=== PATIENT | male | born 1995 ===

== ENCOUNTER 2021-04-10 13:40 | Inpatient (IN) | payer OTHER, SELFPAY ==
[2021-04-10 13:50] VITALS: BMI 25.0
[2021-04-10 14:03] VITALS: BP 120/83; PULSE 116; RESP 18; TEMP 36.7; O2SAT 98
--- NOTE | 2021-04-10 15:05 | PC.NURSE ---
ADMISSION PATIENT ARRIVED DIRECT ADMIT FROM [facility]. REPORTS DRINKING ALCOHOL DAILY FOR ABOUT 2 YEARS NOW. HAS BEEN HAVING ISSUES WITH FAMILY RECENTLY. ONLY FAMILY NEAR IS SISTER THAT DOES NOT WANT TO TALK TO HIM. MOM HAS MOVED TO [facility]. WHILE DRUNK BEGAN TO HAVE SI. STATES THAT HE OCCASIONALLY HAS SI BUT ONLY WHEN HE IS DRINKING. ONCE SOBER THE THOUGHTS ARE GONE. AT THIS TIME, HE WOULD LIKE TO GET HELP FOR HIS ALCOHOL USE. DENIES ANY CURRENT OUTPATIENT CARE. HAS NOT BEEN ON MEDS FOR 2 YEARS. AT THAT TIME WAS ON ZOLOFT BUT ONLY FOR ABOUT MONTHS. PATIENT IS CALM, COOPERATIVE, A&OX4. DENIES CURRENT SI, DENIES HI AND AVH. BAL 312. UDS + THC.
[2021-04-10] MEDS: nicotine 2 mg Gum BUCCAL ×3 (15:18→20:20)
[2021-04-10] MEDS: trazodone 50 mg Tablet PO (20:20)
[2021-04-10 20:58] VITALS: BP 120/79; PULSE 108; RESP 18; TEMP 36.6; O2SAT 99
[2021-04-11 06:00] VITALS: BP 114/75; PULSE 112; RESP 16; TEMP 36.6; O2SAT 98
[2021-04-11] MEDS: multivitamin therapeutic Tablet 1 TAB PO (08:55)
[2021-04-11] MEDS: thiamine 100 mg Tablet PO (08:55)
[2021-04-11] MEDS: folic acid 1 mg Tablet PO (08:55)
--- NOTE | 2021-04-11 10:02 | P.NPUHP_ITS ---
Providers/Chief Complaint Admitting Physician: Willam Bedolla MD Chief Complaint: ETHO, SI HPI NPU History of Present Illness Gaurav Conde is a 25 year old male who presented to the outside hospital after he told some people about him having suicidal thoughts with a plan, and that led to him being at the outside hospital. He was transferred to [facility] and admitted to the neuropsychiatric unit for definitive treatment of those issues. He has never had psychiatric outpatient treatment. He reports he had outpatient treatment in 2019 [address] in [place]. He reports he went to a few therapy sessions but did not really stick with it. He reports he has been on Zoloft during that time and then he has had attention deficit hyperactivity disorder medication as a child in the past. He does not remember if he had outpatient services then, or if he was just going to some doctor for his attention deficit hyperactivity disorder medication. He reports that was from school age through high school, just beyond high school that he was taking attention deficit hyperactivity disorder medication. He reports he smokes cigarettes maybe like three to four a week. He drinks alcohol most days, sometimes pushing up towards a fifth on heavy days. He smokes marijuana most days, endorsing that he does have his medical card. He denies any other illicit drugs but says he has had cocaine sometimes in his life starting in college, maybe a handful of times. The only rehab he has been to has been [facility] which is substance awareness, traffic offender program that most states have secondary to having two DUI?s, one in 2018 and one in 2019. He has been to Alcoholics Anonymous, and he has had some cannabis possession charges. He reports that since COVID started, he has been out of work and drinking heavily. He reports because of the drinking, he lost his license in 2019. He was dating girls who were also drinking heavily and for the last year and a half he has really been going at it and things have been hard. He started moving in the right direction, got a nice apartment, got a new job in February, but on Tuesday he had a couple of shots when he was walking home from getting his hair cut. He reports that mom and dad had moved away, and he really started thinking about where he should be and where he was, and he started getting his head in a way that was not healthy and he started texting people that he was going to kill himself. He has never had a suicide attempt in the past, never had self-injurious behavior. He reports his anxiety is what mostly drives with what is going on right now, and we discussed the risks, benefits, and alternatives of initiating Buspar, and he understood and agreed to proceed as is documented in this note. PSYCHIATRIC HISTORY: As above. SUBSTANCE ABUSE HISTORY: As above. FAMILY HISTORY: He endorses mental health issues on both sides of the family, and addiction issues on his mom?s side of the family. He does report even though she was not related, that her mom?s stepmother, his step-grandmother committed suicide in 2006. DEVELOPMENTAL HISTORY: He reports from what he understands, he had to have a spinal tap shortly after he was born, but he learned to walk and talk and met his developmental milestones on time. When he went off to school, he did not require speech therapy, learning support, emotional support, or special education classes. PSYCHOSOCIAL HISTORY: His parents were together when he was born and in 2011. He has an older sister that is the product of that same union. Otherwise, neither of his parents have any other children. He reports that his childhood was fine, that there was no abuse. He denied any emotional, physical, or sexual abuse. He denied any significant traumas in his life. He reports that he graduated from high school and went to college for a few semesters. He reports he really likes music, being creative, reading. He endorses being a heterosexual with his longest relationship being five months. He has never been , he has never had children, he has never been in the , and denies any baptist belief system. His longest work history was about three years. He currently lives in an apartment alone with his cat. LEGAL HISTORY: He reports that he has only been in holding for hours after these DUI?s. MEDICAL HISTORY: Denied. Meds NPU Home Medications Medication Instructions Recorded Confirmed Last Taken Type No Known Home Medications 04/10/21 04/10/21 Unknown History Allergies Allergy/AdvReac Type Severity Reaction Status Date / Time No Known Allergies Allergy Verified 04/10/21 14:53 Mental Status Exam MSE Comments: This is a well-nourished, well-developed, white male, with adequate dress, grooming, and eye contact. He was in [facility] scrubs. No abnormal movements. Cooperative with exam in no acute distress. Speech was decreased rate and volume. Mood described as good; affect congruent. Thought process, organized. Thought content: patient denied any suicidal or homicidal ideation, there were no delusions reported or noted, patient denied any auditory or visual hallucinations. Attention, concentration, and memory appear intact but were not formally tested. He is alert and oriented times three. Insight and judgment are limited, impulse control limited. Vitals/I&O/Wt Last Vital Signs Temp 97.9 F 04/10/21 20:58 Pulse 108 H 04/10/21 20:58 Resp 18 04/10/21 20:58 BP 120/79 04/10/21 20:58 Pulse Ox 99 04/10/21 20:58 Weight last 48 hrs Weight 74.843 kg A&P Assessment and plan (1) Alcohol dependence: Status: Acute (2) Generalized anxiety disorder: Status: Acute (3) Suicidal ideation: Status: Acute Plan This is a 25-year-old, white male, with alcohol dependence, generalized anxiety disorder, who presents with active addiction and suicidal thinking that led to the hospitalization. RECOMMENDATION AND PLAN: 1. Continue current medications except start Buspar 15 mg po bid. 2. Encourage individual, group, and milieu therapy. 3. Continue q-15 minute checks for safety. 4. Encourage sober living treatment after discharge, at the highest level of care, to which he is willing to commit. Involuntary Hold Information 96 Hour Hold: 96 Hour Involuntary Admission: No Attestations NPU Medical Necessity Statement*: Inpatient hospitalization is medically necessary and the clinically appropriate intervention, at this time. We will monitor medications and make changes as indicated. Patient will be in the hospital for over two midnights. Likely length of stay is three to five days. 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
[2021-04-11 14:00] VITALS: BP 111/70; PULSE 104; RESP 18; TEMP 36.7; O2SAT 97
[2021-04-11] MEDS: nicotine 2 mg Gum BUCCAL ×2 (17:35→20:15)
[2021-04-11] MEDS: BuSPIRONE 10 mg Tablet 15 MG PO (17:41)
[2021-04-11] MEDS: trazodone 50 mg Tablet PO (20:15)
[2021-04-11 20:28] VITALS: BP 114/77; PULSE 100; RESP 18; TEMP 36.9; O2SAT 98
--- NOTE | 2021-04-11 22:50 | PC.NURSE ---
2014- c/o insomnia trazodone 50 mg given po 2114-resting in bed with eyes closed.
[2021-04-12 06:00] VITALS: BP 119/74; PULSE 88; RESP 16; TEMP 36.6; O2SAT 99
[2021-04-12] MEDS: BuSPIRONE 10 mg Tablet 15 MG PO ×2 (09:22→20:47)
[2021-04-12] MEDS: multivitamin therapeutic Tablet 1 TAB PO (09:22)
[2021-04-12] MEDS: folic acid 1 mg Tablet PO (09:22)
[2021-04-12] MEDS: thiamine 100 mg Tablet PO (09:22)
[2021-04-12 14:00] VITALS: BP 109/69; PULSE 92; RESP 18; TEMP 37.1; O2SAT 98
[2021-04-12] MEDS: nicotine 2 mg Gum BUCCAL ×2 (15:06→19:19)
--- NOTE | 2021-04-12 18:23 | W.PM.NPUPNS ---
Subjective NPU Subjective: Interval history: Patient presents today reporting that he is doing better overall. He reports that the medication has been helpful and he feels optimistic that he will be able to manage things moving forward. He reports that his mom and her will be assisting him by staying with him for a little while and that they are looking at possible drug and alcohol inpatient opportunities as well we discussed that we will monitor him for another day and likely discharge in the morning. Mental Status Exam MSE Comments: This is a well-nourished, well-developed, white male, with adequate dress, grooming, and eye contact. He was in [facility] scrubs. No abnormal movements. Cooperative with exam in no acute distress. Speech was more normal rate and volume. Mood described as good; affect congruent. Thought process, organized. Thought content: patient denied any suicidal or homicidal ideation, there were no delusions reported or noted, patient denied any auditory or visual hallucinations. Attention, concentration, and memory appear intact but were not formally tested. He is alert and oriented times three. Insight and judgment are limited, but improving impulse control limited Vitals/I&O/Wt Last Vital Signs Temp 98.1 F 04/12/21 22:00 Pulse 89 04/12/21 22:00 Resp 18 04/12/21 22:00 BP 112/70 04/12/21 22:00 Pulse Ox 98 04/12/21 22:00 Weight last 48 hrs Weight 76.385 kg A&P Assessment and plan (1) Suicidal ideation: Status: Acute (2) Generalized anxiety disorder: Status: Acute (3) Alcohol dependence: Status: Acute Plan This is a 25-year-old, white male, with alcohol dependence, generalized anxiety disorder, who presents with active addiction and suicidal thinking that led to the hospitalization. RECOMMENDATION AND PLAN: 1. Continue current medications except start Buspar 15 mg po bid. 2. Encourage individual, group, and milieu therapy. 3. Continue q-15 minute checks for safety. 4. Encourage sober living treatment after discharge, at the highest level of care, to which he is willing to commit. Involuntary Hold Information 96 Hour Hold: 96 Hour Involuntary Admission: No Attestations NPU Medical Necessity Statement*: Inpatient hospitalization is medically necessary and the clinically appropriate intervention, at this time. We will monitor medications and make changes as indicated. Likely length of stay is 1-3 days. 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
[2021-04-12] MEDS: hyDROXYzine 25 mg Capsule 50 MG PO (19:49)
[2021-04-12] MEDS: trazodone 50 mg Tablet PO (20:47)
[2021-04-12 22:00] VITALS: BP 112/70; PULSE 89; RESP 18; TEMP 36.7; O2SAT 98
--- NOTE | 2021-04-12 22:33 | PC.NURSE ---
1948 On assessment the patient is sitting in the day room watching TV. He reports that he is really anxious. He can't determine where this feeling is coming from. Vistaril 50mg po given for anxiety. Medication effective. Patient reports at 2100 that he is feeling better.
[2021-04-13 06:00] VITALS: BP 108/72; PULSE 84; RESP 16; TEMP 36.6; O2SAT 99
--- NOTE | 2021-04-13 08:06 | W.PM.NPUDCS ---
Diagnoses at Discharge Discharge Diagnosis (1) Suicidal ideation: Status: Resolved (2) Generalized anxiety disorder: Status: Acute (3) Alcohol dependence: Status: Acute Reason for Visit Reason for Visit: WILBERT POE Brief History: History of Present Illness Gaurav Conde is a 25 year old male who presented to the outside hospital after he told some people about him having suicidal thoughts with a plan, and that led to him being at the outside hospital. He was transferred to [facility] and admitted to the neuropsychiatric unit for definitive treatment of those issues. He has never had psychiatric outpatient treatment. He reports he had outpatient treatment in 2019 at a place in [place]. He reports he went to a few therapy sessions but did not really stick with it. He reports he has been on Zoloft during that time and then he has had attention deficit hyperactivity disorder medication as a child in the past. He does not remember if he had outpatient services then, or if he was just going to some doctor for his attention deficit hyperactivity disorder medication. He reports that was from school age through high school, just beyond high school that he was taking attention deficit hyperactivity disorder medication. He reports he smokes cigarettes maybe like three to four a week. He drinks alcohol most days, sometimes pushing up towards a fifth on heavy days. He smokes marijuana most days, endorsing that he does have his medical card. He denies any other illicit drugs but says he has had cocaine sometimes in his life starting in college, maybe a handful of times. The only rehab he has been to has been [facility] which is substance awareness, traffic offender program that most states have secondary to having two DUI?s, one in 2018 and one in 2019. He has been to Alcoholics Anonymous, and he has had some cannabis possession charges. He reports that since COVID started, he has been out of work and drinking heavily. He reports because of the drinking, he lost his license in 2019. He was dating girls who were also drinking heavily and for the last year and a half he has really been going at it and things have been hard. He started moving in the right direction, got a nice apartment, got a new job in February, but on Tuesday he had a couple of shots when he was walking home from getting his hair cut. He reports that mom and dad had moved away, and he really started thinking about where he should be and where he was, and he started getting his head in a way that was not healthy and he started texting people that he was going to kill himself. He has never had a suicide attempt in the past, never had self-injurious behavior. He reports his anxiety is what mostly drives with what is going on right now, and we discussed the risks, benefits, and alternatives of initiating Buspar, and he understood and agreed to proceed as is documented in this note. PSYCHIATRIC HISTORY: As above. SUBSTANCE ABUSE HISTORY: As above. FAMILY HISTORY: He endorses mental health issues on both sides of the family, and addiction issues on his mom?s side of the family. He does report even though she was not related, that her mom?s stepmother, his step-grandmother committed suicide in 2006. DEVELOPMENTAL HISTORY: He reports from what he understands, he had to have a spinal tap shortly after he was born, but he learned to walk and talk and met his developmental milestones on time. When he went off to school, he did not require speech therapy, learning support, emotional support, or special education classes. PSYCHOSOCIAL HISTORY: His parents were together when he was born and in 2011. He has an older sister that is the product of that same union. Otherwise, neither of his parents have any other children. He reports that his childhood was fine, that there was no abuse. He denied any emotional, physical, or sexual abuse. He denied any significant traumas in his life. He reports that he graduated from high school and went to college for a few semesters. He reports he really likes music, being creative, reading. He endorses being a heterosexual with his longest relationship being five months. He has never been , he has never had children, he has never been in the , and denies any buddhism belief system. His longest work history was about three years. He currently lives in an apartment alone with his cat. LEGAL HISTORY: He reports that he has only been in holding for hours after these DUI?s. MEDICAL HISTORY: Denied. Hospital Course Hospital Course He quickly acclimated to the individual, group and milieu therapies provided. He was able to be honest about his use and utilize family support from his parents and their spouses to develop a plan for how he would avoid this being a problem in the future. He was started on BuSpar for anxiety and also received thiamine and trazodone at discharge. He had a clear plan for his recovery and had a marked improvement during the hospitalization with the ability to contract for safety outside the hospital prior to discharge. At the outside hospital, patient had routine laboratory studies which were within normal limits except for few outliers. Additionally there was a general medical evaluation which was also within normal limits and revealed no new acute processes. Discharge Summary: At the time of discharge, he denied psychosis or lethality. Mood and anxiety were well managed. Patient endorsed a plan to avoid all drugs of abuse and follow-up with the aftercare recommendations of the treatment team. Patient was evaluated and deemed to be absent credible lethality, and had achieved the maximum benefit from an inpatient hospitalization, so was discharged. Involuntary Hold Information 96 Hour Hold: 96 Hour Involuntary Admission: No Mental Status Exam MSE Comments: This is a well-nourished, well-developed, white male, with adequate dress, grooming, and eye contact. He was in [facility] scrubs. No abnormal movements. Cooperative with exam in no acute distress. Speech was more normal rate and volume. Mood described as good; affect congruent. Thought process, organized. Thought content: patient denied any suicidal or homicidal ideation, there were no delusions reported or noted, patient denied any auditory or visual hallucinations. Attention, concentration, and memory appear intact but were not formally tested. He is alert and oriented times three. Insight and judgment are limited, but improving, impulse control limited Discharge Data Vitals: Last Vital Signs Temp 97.9 F 04/13/21 06:00 Pulse 84 04/13/21 06:00 Resp 16 04/13/21 06:00 BP 108/72 04/13/21 06:00 Pulse Ox 99 04/13/21 06:00 Discharge Plan Discharge Patient Disposition: Home Condition: Stable Prescriptions: New buspirone 10 mg Tablet 15 mg PO 0900,2100 30 Days Qty: 90 1RF Vitamin B-1 (mononitrate) 100 mg Tablet 100 mg PO DAILY 30 Days Qty: 30 1RF trazodone 50 mg Tablet 50 mg PO BEDTIME PRN (Reason: Sleep) 30 Days Qty: 30 1RF No Action No Known Home Medications 0RF Discharge Orders: Discharge Order (Routine); Ordered 04/13/21 Ordered By: Willam Bedolla Referrals: [facility] [Other] [facility] [Other] - 04/20/21 Discharge Diet: Regular Discharge Activity: Resume usual activity Patient Instructions: Opioid Safety Discharge Attestations NPU Time Spent in Discharge Care*: less than 30 min Specific Discharge Activities: Specific discharge activities: educating patient, discussing with machine adjuster leader case trim/social workers/dc planners, documenting/other paperwork and evaluating patient/reviewing data Coding Level of Care Code Acute [facility] [place] note Diagnoses Suicidal ideation R45.851 Generalized anxiety disorder F41.1 Alcohol dependence F10.20
[2021-04-13 08:47] VITALS: BP 108/72; PULSE 84; RESP 16; TEMP 36.6; O2SAT 99
[2021-04-13] MEDS: BuSPIRONE 10 mg Tablet 15 MG PO (08:53)
[2021-04-13] MEDS: folic acid 1 mg Tablet PO (08:53)
[2021-04-13] MEDS: multivitamin therapeutic Tablet 1 TAB PO (08:53)
[2021-04-13] MEDS: thiamine 100 mg Tablet PO (08:53)
--- NOTE | 2021-04-13 10:17 | PC.OT ---
PER NURSING, PATIENT TO BE DISCHARGED TODAY; HOLD EVALUATION.
== END 2021-04-13 13:11 | disposition home or self-care (01) | DRG 880 ==
PROVIDERS: Admitting Provider Psychiatry & Neurology Psychiatry; Visit Provider Psychiatry & Neurology Psychiatry
DX: F41.1 Generalized anxiety disorder (principal); R45.851 Suicidal ideations; F10.280 Alcohol dependence with alcohol-induced anxiety disorder; F17.210 Nicotine dependence, cigarettes, uncomplicated; Z81.8 Family history of other mental and behavioral disorders; Z81.4 Family history of other substance abuse and dependence; Z65.3 Problems related to other legal circumstances